=== PATIENT | female | born 1935 | race Caucasian/White ===

== ENCOUNTER 2016-09-12 10:47 | Emergency (ER) | payer MEDICARE, BC ==
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
[2016-09-12 11:52] VITALS: BP 101/61
--- NOTE | 2016-09-12 12:00 | RAD ---
Indication: Right fifth metatarsal tenderness. 2 views of the right foot demonstrates diffuse osteopenia. There is suggestion of a fracture of the distal end of the proximal phalanx of the fifth digit. IMPRESSION: Question oblique fracture distal end proximal phalanx fifth digit. Diffuse osteopenia is noted.
== END 2016-09-12 12:10 | disposition home or self-care (01) ==
LOC: UCCORT 10:47
DX: S92.501A Displaced unspecified fracture of right lesser toe(s), initial encounter for closed fracture (principal); W50.0XXA Accidental hit or strike by another person, initial encounter; Y93.9 Activity, unspecified; Y92.9 Unspecified place or not applicable; M85.871 Other specified disorders of bone density and structure, right ankle and foot; Z88.1 Allergy status to other antibiotic agents
CPT/HCPCS: 99212; G0463